=== PATIENT | female | born 1985 | race American Indian/Alaskan Native ===

== ENCOUNTER 2017-05-10 08:17 | Emergency (ER) | payer BC, MEDICAID ==
[2017-05-10 09:13] LABS: Basophils % (Auto) 0.8 % (0.0-1.8); Eosinophils % (Auto) 5.1 % (0.0-4.3); Hematocrit 41.8 % (30.3-42.9); Hemoglobin 14.3 gm/dl (10.1-14.3); Mean Corpuscular HGB Conc 34 % (30-34); Mean Corpuscular Hemoglobin 32 pg (28-32); Mean Corpuscular Volume 92 fl (79-97); Platelet Count 359 K/mm3 (140-440); Red Blood Count 4.53 M/mm3 (3.65-5.03); Red Cell Distribution Width 14.5 % (13.2-15.2); White Blood Count 6.5 K/mm3 (4.5-11.0)
[2017-05-10 09:26] LABS: Anion Gap 15 mmol/L; Blood Urea Nitrogen 11 mg/dL (7-17); Calcium 8.5 mg/dL (8.4-10.2); Carbon Dioxide 26 mmol/L (22-30); Glucose 82 mg/dL (65-100); Potassium 3.9 mmol/L (3.6-5.0); Sodium 140 mmol/L (137-145)
[2017-05-10 10:18] LABS: Bacteria,Urine 2+ /HPF (Negative); Bilirubin,Urine NEG (Negative); Blood,Urine LG (Negative); Ketones,Urine NEG (Negative); Leukocyte Esterase,Urine SM (Negative); Mucus,Urine FEW /HPF; Nitrite,Urine NEG (Negative); Urobilinogen,Urine < 2.0 mg/dL (<2.0)
[2017-05-10 10:19] LABS: RBC,Urine > 182.0 /HPF (0.0-6.0)
--- NOTE | 2017-05-10 11:35 | Ultrasound Report ---
ULTRASOUND OB LESS THAN 14 WEEKS FETUS ULTRASOUND OB TRANSVAGINAL HISTORY: Severe abdominal pain during . TECHNIQUE: Transabdominal and transvaginal ultrasound with color and spectral doppler interrogation. FINDINGS: The uterus measures 9 x 4 x 4 cm. No uterine mass is appreciated. The cervix is unremarkable. No pelvic fluid. The endometrium is poorly imaged on this exam. The endometrium appears to measure 1.3 cm in thickness. No intrauterine gestational sac is demonstrated. No heart tones could be demonstrated. The ovaries are normal size, contour and echotexture. No adnexal cyst or mass is appreciated. IMPRESSION: No intrauterine is demonstrated.
[2017-05-10] MEDS ORDERED: NORCO 10/325 PO ONE (12:41)
[2017-05-10 12:51] VITALS: BP 137/87
--- NOTE | 2017-05-10 13:30 | Emergency Department Report ---
HPI - General Chief Complaint: Abdominal Pain Time Seen by Provider: 05/10/17 12:19 - HPI HPI: 32-year-old female presents to ED with pelvic pain. The patient's skin from [facility] [employer] [facility] office when she's been treated for a miscarriage possible ectopic. Patient states her pain started this morning around 5, 10 out of 10 right-sided , sharp. She states that her pain is accompanied by nausea, vomiting and urinary symptoms but no diarrhea. Patient has not taking any medication at home for her symptoms. She denies any exacerbating factors. She denies any alleviating factors. She denies any recent travel, or unusual foods. She denies any sick contacts. MD Complaint: abdominal pain -: Gradual Location: Right side of pelvic Radiation: none Migration to: no migration Severity scale (0 -10): 10 Quality: sharp Improves With: nothing Associated Symptoms: nausea, vomiting, chills ED Past Medical Hx - Past Medical History Previous Medical History?: Yes Hx Hypertension: Yes Hx Asthma: Yes Additional medical history: Hidradenititis Suppurativa - Surgical History Past Surgical History?: No - Social History Smoking Status: Never Smoker Substance Use Type: None - Medications Home Medications: Home Medications Medication Instructions Recorded Confirmed Last Taken Type Cephalexin [Keflex] 500 mg PO Q12HR #14 cap 05/10/17 Unknown Rx oxyCODONE /ACETAMINOPHEN [Percocet 1 tab PO Q6HR PRN #7 tablet 05/10/17 Unknown Rx 5/325] ED Review of Systems ROS: Stated complaint: ABDOMINAL PAIN Other details as noted in HPI Comment: All other systems reviewed and negative Constitutional: no symptoms reported Endocrine: no symptoms reported Gastrointestinal: abdominal pain Genitourinary: as per HPI Physical Exam - Physical Exam Vital Signs: Vital Signs 05/10/17 05/10/17 05/10/17 08:32 10:43 12:40 Temperature 98.8 F 98.6 F 97.6 F Pulse Rate 61 61 67 Respiratory 18 16 17 Rate Blood Pressure 131/80 Blood Pressure 134/71 137/87 [Right] O2 Sat by Pulse 99 98 100 Oximetry Physical Exam: - Physical Exam Physical Exam: - General Limitations: No Limitations General appearance: alert, in no apparent distress, obese - Head Head exam: Present: atraumatic, normocephalic - Eye Eye exam: Present: normal appearance - ENT ENT exam: Present: mucous membranes moist - Neck Neck exam: Present: normal inspection - Respiratory Respiratory exam: Present: normal lung sounds bilaterally. Absent: respiratory distress - Cardiovascular Cardiovascular Exam: Present: normal rhythm, normal rate. Absent: systolic murmur, diastolic murmur, rubs, gallop - GI/Abdominal GI/Abdominal exam: Present: Right pelvic area tenderness gu: Patient refused - Extremities Exam Extremities exam: Present: normal inspection - Back Exam Back exam: Present: normal inspection - Neurological Exam Neurological exam: Present: alert, oriented X3 - Psychiatric Psychiatric exam: normal affect and mood - Skin Skin exam: Present: warm, dry, intact, normal color. Absent: rash ED Course Vital Signs 05/10/17 05/10/17 05/10/17 08:32 10:43 12:40 Temperature 98.8 F 98.6 F 97.6 F Pulse Rate 61 61 67 Respiratory 18 16 17 Rate Blood Pressure 131/80 Blood Pressure 134/71 137/87 [Right] O2 Sat by Pulse 99 98 100 Oximetry ED Medical Decision Making - Lab Data Result diagrams: 05/10/17 08:52 05/10/17 08:52 Critical care attestation.: If time is entered above; I have spent that time in minutes in the direct care of this critically ill patient, excluding procedure time. ED Disposition Clinical Impression: Miscarriage UTI (urinary tract infection) Qualifiers: Urinary tract infection type: acute cystitis Hematuria presence: without hematuria Qualified Code(s): N30.00 - Acute cystitis without hematuria Disposition: DC-01 TO HOME OR SELFCARE Is pt being admited?: No Does the pt Need Aspirin: No Condition: Stable Instructions: Abdominal Pain (ED) Prescriptions: Cephalexin [Keflex] 500 mg PO Q12HR #14 cap oxyCODONE /ACETAMINOPHEN [Percocet 5/325] 1 tab PO Q6HR PRN #7 tablet PRN Reason: Pain Referrals: PRIMARY MD ADRIANE [Primary Care Provider] - 3-5 Days JAMES YORK MD [Staff Physician] - 3-5 Days
== END 2017-05-10 13:40 | disposition home or self-care (01) ==
LOC: ED 08:17
DX: O03.9 Complete or unspecified spontaneous abortion without complication (principal); I10 Essential (primary) hypertension; J45.909 Unspecified asthma, uncomplicated; Z88.8 Allergy status to other drugs, medicaments and biological substances
CPT/HCPCS: 36415; 76801; 76817; 80048; 81001; 84702; 85025; 86850; 86900; 86901

== ENCOUNTER 2022-05-25 10:03 | Emergency (ER) | payer BC, MEDICAID ==
[2022-05-25 10:08] VITALS: BP 139/84
== END 2022-05-25 22:10 | disposition left against medical advice (07) ==
LOC: ED 10:03
DX: M25.552 Pain in left hip (principal); Z53.21 Procedure and treatment not carried out due to patient leaving prior to being seen by health care provider; V89.2XXA Person injured in unspecified motor-vehicle accident, traffic, initial encounter; Y93.89 Activity, other specified; Y92.89 Other specified places as the place of occurrence of the external cause; Y99.8 Other external cause status